=== PATIENT | female | born 1965 | race Caucasian/White ===

== ENCOUNTER 2019-12-31 07:42 | Emergency (ER) | payer BC, OTHER ==
[~2019-12-31] VITALS: Ht 165.1 cm; Wt 68.0 kg
[2019-12-31] MEDS ORDERED: SODIUM CHLORIDE 0.9% 1,000 ML IV ONE ×3 (08:00)
[2019-12-31] MEDS ORDERED: ONDANSETRON ODT 4 MG TAB PO ONE (08:00)
[2019-12-31] MEDS ORDERED: MORPHINE SULFATE 4 MG/ML SYR/VIAL IV ONE ×2 (08:00)
[2019-12-31] MEDS ORDERED: ONDANSETRON HCL 4 MG/2 ML VIAL IV ONE (08:00)
[2019-12-31 08:07] LABS: Basophils # (auto) 0.1 10 ^3/uL (0-0.2); Basophils % (auto) 0.9 % (0.0-2.0); Eosinophils # (auto) 0.2 10 ^3/uL (0-0.8); Eosinophils % (auto) 2.2 % (0.0-7.0); Hematocrit 39.7 % (36.0-46.0); Hemoglobin 13.6 g/dL (12.2-16.2); Lymphocytes % (auto) 23.4 % (10.0-50.0); Mean Corpuscular Hemoglobin 30.8 pg (28.0-32.0); Mean Corpuscular Hgb Conc. 34.2 g/dL (32.0-36.0); Mean Corpuscular Volume 90.1 fL (80.0-100.0); Monocytes # (auto) 0.7 10 ^3/uL (0-1.3); Monocytes % (auto) 8.4 % (0.0-12.0); Neutrophils # (auto) 5.5 10 ^3/uL (1.6-8.6); Neutrophils % (auto) 65.1 % (37.0-80.0); Nucleated Red Blood Cells % 0.3 %; Platelet Count (auto) 293 10^3/uL (140-450); Red Blood Cells 4.41 10^6/uL (4.0-5.20); Red Cell Distribution Width 12.7 % (11.8-14.3); White Blood Cell 8.4 10^3/uL (4.4-10.8)
[2019-12-31 08:38] LABS: Chloride 93 mmol/L (98-107); Potassium 3.9 mmol/L (3.5-5.1); Sodium 131 mmol/L (136-145)
[2019-12-31 08:43] LABS: Albumin 3.4 g/dL (3.4-5.0); Anion Gap 7 (5-15); Blood Urea Nitrogen 27 mg/dL (7-18); Carbon Dioxide 31 mmol/L (21-32); Glucose 106 mg/dL (74-106); Lipase 160 U/L (73-393)
[2019-12-31 08:48] LABS: Amylase 62 U/L (25-115); Aspartate Aminotransferase 18 U/L (15-37)
[2019-12-31 08:58] LABS: Alanine Aminotransferase 16 U/L (13-56); Alkaline Phosphatase 81 U/L (45-117)
[2019-12-31 09:25] LABS: BUN/Creatinine Ratio 13.4; Bilirubin, Total 0.3 mg/dL (0.2-1.0); GFR African American 33 mL/min; GFR Non-African American 27 mL/min; Total Protein 7.2 g/dL (6.4-8.2)
[2019-12-31 10:31] VITALS: BP 117/77
[2019-12-31] MEDS ORDERED: PANTOPRAZOLE 40 MG TAB PO ONE (11:00)
[2019-12-31] MEDS ORDERED: HYDROcodone-ACET 10/325MG TAB PO ONE (11:00)
== END 2019-12-31 11:16 | disposition home or self-care (01) ==
LOC: ER 07:42 → EDBD 07:42 → ER 10:42
DX: R10.84 Generalized abdominal pain (principal); R79.89 Other specified abnormal findings of blood chemistry; I10 Essential (primary) hypertension; Z87.891 Personal history of nicotine dependence
CPT/HCPCS: 36415; 71045; 76705; 80053; 82150; 83690; 84484; 85025; 93005; 96374; 96375; 99285; J2270; J2405